=== PATIENT | female | born 1985 | race Caucasian/White ===

== ENCOUNTER 2022-05-09 08:05 | Outpatient (CLI) | payer OTHER, SELFPAY ==
--- NOTE | ~2022-05-09 | MM_ITS ---
EXAMINATION: MM screening [facility] BI w grace HISTORY: Screening mammogram TECHNIQUE: Craniocaudal and mediolateral oblique 3-D tomosynthesis images were obtained and synthetic 2-D images were generated. CAD analysis was submitted and interpreted. COMPARISON: None, baseline BREAST PARENCHYMAL COMPOSITION: There are scattered areas of fibroglandular density. FINDINGS: RIGHT BREAST: There is focal asymmetry posterior third of the outer breast. LEFT BREAST: There is no suspicious mass, calcification, or architectural distortion to suggest malig tim. IMPRESSION: 1. Focal asymmetry of the right breast. 2. Additional mammographic views and possible breast ultrasound are recommended. BI-RADS Category 0: Incomplete: Needs additional imaging evaluation. Reviewed, dictated and finalized at location A. IMPRESSION: 1. Focal asymmetry of the right breast. 2. Additional mammographic views and possible breast ultrasound are recommended . BI-RADS Category 0: Incomplete: Needs additional imaging evaluation.
== END 2022-05-09 08:06 | disposition home or self-care (01) ==
LOC: ANHIMG 08:06
PROVIDERS: PCP Family Medicine; Visit Provider Obstetrics & Gynecology
DX: Z12.31 Encounter for screening mammogram for malignant neoplasm of breast (principal); R92.8 Other abnormal and inconclusive findings on diagnostic imaging of breast
CPT/HCPCS: 77063; 77067

== ENCOUNTER 2022-05-30 13:32 | Outpatient (CLI) | payer OTHER, SELFPAY ==
--- NOTE | ~2022-05-30 | MMUS_ITS ---
EXAMINATION: MM diagnostic mayda RT w grace, US breast RT limited HISTORY: Focal asymmetry of the right breast TECHNIQUE: Additional 3-D tomosynthesis images of the right breast were performed and synthetic 2-D i mages were generated. CAD analysis was submitted and interpreted. High resolution limited right breas t ultrasound was performed. COMPARISON: 05/09/2022 FINDINGS: MAMMOGRAPHIC FINDINGS: A focal asymmetry persists in the posterior third of the upper-outer quadrant of the breast at the 10 :00 location 8 cm from the nipple. No suspicious calcification or architectural distortion are identi fied. ULTRASOUND: There is a 2.3 x 0.9 cm isoechoic area at the 10:30 location 4 cm from the nipple in the far posterio r breast corresponding to the mammographic finding in question. IMPRESSION: 1. Possible island of fibroglandular tissue in the far posterior breast corresponding to the focal as ymmetry of the right breast. 2. Recommend 6 month follow-up right diagnostic mammogram and possible ultrasound. BI-RADS category 3, probably benign findings. Reviewed, dictated and finalized at location A. IMPRESSION: 1. Possible island of fibroglandular tissue in the far posterior breast corresp onding to the focal asymmetry of the right breast. 2. Recommend 6 month follow-up right diagnostic mammogram and possible ultrasou nd. BI-RADS category 3, probably benign findings.
== END 2022-05-30 13:33 | disposition home or self-care (01) ==
PROVIDERS: PCP Family Medicine; Visit Provider Obstetrics & Gynecology
DX: R92.8 Other abnormal and inconclusive findings on diagnostic imaging of breast (principal)
CPT/HCPCS: 76642; 77061; 77065; G0279

== ENCOUNTER 2022-09-06 14:01 | Emergency (ER) | payer OTHER, SELFPAY ==
--- NOTE | 2022-09-06 14:09 | ED.FEMALEGU ---
HPI - Female Genitourinary General Chief complaint: Urogenital-Female Stated complaint: uti complaint Time Seen by Provider: 09/06/22 14:37 Source: patient, RN notes reviewed and old records reviewed Mode of arrival: ambulatory Limitations: no limitations History of Present Illness HPI Narrative: 37-year-old female presents to the [facility] with complaints of right labial pain and to sores. States it has been there a couple days. Denies any similar symptoms in the past. States she has been a stress. Denies any abdominal pain, CVA tenderness. Denies fevers, chest pain. No nausea vomiting diarrhea denies any vaginal discharge Related Data Allergies Allergy/AdvReac Type Severity Reaction Status Date / Time No Known Allergies Allergy Verified 09/06/22 14:25 Review of Systems Review of Systems: All systems reviewed & are unremarkable except as noted in HPI and below Constitutional: Constitutional: Reports no additional constitutional complaints Eyes: Eyes: Reports no additional eye complaints ENT: Reports system reviewed and no additional complaints, except as documented Cardiovascular: Cardiovascular: Reports no additional cardiovascular complaints, Denies chest pain and Denies dyspnea Respiratory: Respiratory: Reports no additional respiratory complaints, Denies chest congestion, Denies cough and Denies dyspnea Gastrointestinal: Gastrointestinal: Reports no additional gastrointestinal complaints, Denies abdominal pain, Denies nausea and Denies vomiting Genitourinary: Genitourinary: Reports as per HPI Musculoskeletal: Musculoskeletal: Reports no additional musculoskeletal complaints Integumentary/Breasts: Skin/Breast: Reports system reviewed and no additional complaints, except as docu Neurologic: Reports system reviewed and no additional complaints, except as documented Psychiatric: Psychiatric: Reports no additional psychiatric complaints Allergic/Immunologic: Allergic/Immunologic: Reports no additional allergic/immunologic complaints [facility] Past Medical History Medical History (Updated 09/07/22 @ 00:01 by Background Daemon) Abnormal Pap smear of cervix (~2005) Abnormal serum iron level iron 70 with 21% saturation and ferritin 35 on 12/07/2021 Abnormality of right breast on screening mammogram Acute abdominal pain Acute adjustment disorder with anxiety Acute bronchitis ADHD (attention deficit hyperactivity disorder), inattentive type Alopecia areata Anemia Arthritis labs for inflammatory arthritis were all negative 12/07/2021 with UNIQUE negative,CRP 0.06, sedimentation rate 14, uric acid 4.3, rheumatoid factor less than 8.6 Atypical chest pain BMI 24.0-24.9, adult BMI 25.0-25.9,adult BMI 27.0-27.9,adult Breast asymmetry Chronic anxiety Chronic depression Chronic low back pain COVID-19 (~05/24/20) COVID antibody test positive at 217 on 12/07/2021. Encounter for IUD insertion 03/28/15 Mirena insertion Encounter for IUD removal 06/22/18 Mirena removal Family history of breast cancer Irritable bowel syndrome with constipation and diarrhea Overweight (BMI 25.0-29.9) UTI (urinary tract infection) Vitamin B12 deficiency anemia 805 on 12/07/2021 Vitamin D insufficiency 60.6 on 12/07/2021 Surgical History Surgical History History of colposcopy with cervical biopsy (~2005) benign Family History Family History Mother Hypertension Leaky heart valve Father Hypertension Grandparent Heart disease Other Breast cancer paternal aunt Social History Social History (Updated 08/07/22 @ 16:12 by Cuca Oconnell MA) Smoking status: Never smoker Alcohol intake: current Drinks per week: 2 Substance use: never Substance use type: does not use Lack of Transportation: No Current Housing: Decline to Answer Concerned About Future Housing: Decline to Answer Diffic
[2022-09-06 14:17] VITALS: BP 124/82; PULSE 113; RESP 18; TEMP 36.6; O2SAT 100
== END 2022-09-06 14:55 | disposition home or self-care (01) ==
PROVIDERS: Emergency Provider Nurse Practitioner; PCP Family Medicine
DX: B00.1 Herpesviral vesicular dermatitis (principal)
CPT/HCPCS: 81003; 99213; G0463

== ENCOUNTER 2022-11-28 11:54 | Outpatient (CLI) | payer OTHER, SELFPAY ==
--- NOTE | ~2022-11-28 | MMUS_ITS ---
EXAMINATION: MM diagnostic mayda RT w grace, US breast RT limited HISTORY: Six-month follow-up of possible island of fibroglandular tissue in the far posterior breast TECHNIQUE: Full field and spot 3-D tomosynthesis images of the right breast were performed and synthe tic 2-D images were generated. CAD analysis was submitted and interpreted. High resolution upper oute r quadrant right breast ultrasound was performed. COMPARISON: 05/30/2022 diagnostic right mammogram and limited right breast ultrasound 05/09/2022 bilateral screening mammogram BREAST PARENCHYMAL COMPOSITION: There are scattered areas of fibroglandular density. FINDINGS: MAMMOGRAPHIC FINDINGS: Stable fibroglandular asymmetry in the posterior upper outer right breast. No suspicious mass, manny ectural distortion, malignant calcification, skin thickening or retraction is detected. ULTRASOUND: No suspicious mass, vascularity or shadowing is detected in the upper outer quadrant of the right aayush ast IMPRESSION: 1. Probably benign fibroglandular asymmetry 2. 12 month follow-up right diagnostic mammogram is recommended BI-RADS category 3, probably benign findings. Reviewed, dictated and finalized at location A. RITY PUBLIC SAFETY OFFICER IMPRESSION: 1. Probably benign fibroglandular asymmetry 2. 12 month follow-up right diagnostic mammogram is recommended BI-RADS category 3, probably benign findings.
== END 2022-11-28 11:55 | disposition home or self-care (01) ==
PROVIDERS: PCP Family Medicine; Visit Provider Obstetrics & Gynecology
DX: R92.8 Other abnormal and inconclusive findings on diagnostic imaging of breast (principal)
CPT/HCPCS: 76642; 77061; 77065; G0279

== ENCOUNTER 2023-06-03 11:29 | Outpatient (CLI) | payer OTHER, SELFPAY ==
--- NOTE | ~2023-06-03 | MMUS_ITS ---
EXAMINATION: MM diagnostic mayda BI w grace, US breast BI limited HISTORY: Six-month follow-up of probably benign fibroglandular asymmetry, posterior upper outer right breast; annual screening of left breast TECHNIQUE: Additional 3-D tomosynthesis images of both breasts were performed and synthetic 2-D image s were generated. CAD analysis was submitted and interpreted. High resolution right upper outer quadr ant and left lower inner quadrant breast ultrasound was performed. COMPARISON: 11/28/2022 diagnostic right mammogram and limited right breast ultrasound 05/30/2022 diagnostic right mammogram and limited right breast ultrasound FINDINGS: MAMMOGRAPHIC FINDINGS: Mild asymmetric soft tissue density is noted in the posterior upper outer right breast and lower inne r left breast. This is thought to be most likely benign fibroglandular asymmetry. Ultrasound was perf ormed in these areas to confirm. No suspicious mass, architectural distortion, malignant calcificatio n, skin thickening or retraction is noted. ULTRASOUND: No suspicious mass or shadowing, cyst or other significant sonographic abnormalities detected in the upper outer right breast are lower inner left breast. IMPRESSION: 1. Benign fibroglandular asymmetry; no evidence of malignancy 2. Routine annual mammographic screening is recommended BI-RADS Category 2: Benign finding(s). Reviewed, dictated and finalized at location C. IMPRESSION: 1. Benign fibroglandular asymmetry; no evidence of malignancy 2. Routine annual mammographic screening is recommended BI-RADS Category 2: Benign finding(s).
== END 2023-06-03 11:30 | disposition home or self-care (01) ==
PROVIDERS: PCP Family Medicine; Visit Provider Surgery
DX: R92.8 Other abnormal and inconclusive findings on diagnostic imaging of breast (principal)
CPT/HCPCS: 76642; 77062; 77066; G0279

== ENCOUNTER 2023-12-08 12:19 | Outpatient (CLI) | payer BC, SELFPAY ==
--- NOTE | ~2023-12-08 | MMUS_ITS ---
EXAMINATION: MM diagnostic mayda RT w grace, US breast RT limited HISTORY: Fibroglandular asymmetry, posterior upper outer right breast TECHNIQUE: ML, MLO and CC 3-D tomosynthesis images of the right breast were performed and synthetic 2 -D images were generated. CAD analysis was submitted and interpreted. High resolution upper outer and lower-outer quadrant right breast ultrasound was performed. COMPARISON: 06/03/2023 diagnostic bilateral mammogram and Limited bilateral breast ultrasound 11/28/2022 diagnostic right mammogram and limited right breast ultrasound 05/30/2022 diagnostic right mammogram and limited right breast ultrasound 05/09/2022 bilateral screening mammogram BREAST PARENCHYMAL COMPOSITION: There are scattered areas of fibroglandular density. FINDINGS: MAMMOGRAPHIC FINDINGS: The asymmetric soft tissue density in the posterior outer mid to upper right breast appears stable pa rticularly comparing the cone compression views with the screening views of 05/09/2022. ULTRASOUND: No suspicious mass or shadowing is evident in the upper outer or lower outer quadrants. No other sign ificant sonographic abnormality is noted. IMPRESSION: 1. Stable chronic focal posterior mid to upper outer right breast fibroglandular asymmetry 2. Routine annual mammographic screening is recommended BI-RADS Category 2: Benign finding(s). Reviewed, dictated and finalized at location A. IMPRESSION: 1. Stable chronic focal posterior mid to upper outer right breast fibroglandula r asymmetry 2. Routine annual mammographic screening is recommended BI-RADS Category 2: Benign finding(s).
== END 2023-12-08 12:20 | disposition home or self-care (01) ==
LOC: ANHIMG 12:21
PROVIDERS: PCP Family Medicine; Visit Provider Physician Assistant Surgical
DX: R92.8 Other abnormal and inconclusive findings on diagnostic imaging of breast (principal)
CPT/HCPCS: 76642; 77061; 77065; G0279

== ENCOUNTER → 2024-03-18 09:54 | Outpatient (CLI) | payer BC, SELFPAY ==
--- NOTE | ~2024-03-18 | XR_ITS ---
EXAMINATION: XR lumbar spine min 4V DATE: 03/18/2024 10:11 INDICATION: Chronic worsening low back pain TECHNIQUE: Anteroposterior, lateral, and bilateral oblique views of the lumbar spine, and cone-down l ateral view of the lumbosacral junction were obtained. COMPARISON: None. FINDINGS: Bone alignment is normal. Vertebral body heights are normal. Mild disc height loss at T9-T10 and T11- T12. Lumbar disc heights are normal. Multilevel bilateral mild lumbar facet osteoarthritis. No pars i nterarticularis defects. Sacral arches are intact. No fracture. Bilateral sacroiliac joints are indra l. IMPRESSION: 1. Multilevel mild lumbar facet osteoarthritis. 2. Mild disc height loss at a few lower thoracic levels. Reviewed, dictated and finalized at location A.
== END ==
PROVIDERS: PCP Family Medicine; Visit Provider Registered Nurse
DX: M51.36 Other intervertebral disc degeneration, lumbar region (principal)
CPT/HCPCS: 72110

== ENCOUNTER 2024-11-23 10:52 | Outpatient (CLI) | payer BC, SELFPAY ==
--- NOTE | ~2024-11-23 | MM_ITS ---
EXAMINATION: MM diagnostic mayda BI w grace HISTORY: Family history of breast cancer TECHNIQUE: 3-D tomosynthesis images of the breasts were performed and synthetic 2-D images were gener ated. CAD analysis was submitted and interpreted. COMPARISON: 12/08/2023, 06/03/2023, 11/28/2022, 05/09/2022 BREAST PARENCHYMAL COMPOSITION:Not Dense. There are scattered areas of fibroglandular density. FINDINGS: There is a developing low-density mass in the posterior upper, outer left breast. Stable pa renchymal appearance of the right breast. No suspicious microcalcifications. IMPRESSION: Developing low-density upper, outer, posterior left breast mass. Spot compression views and ultrasoun d are recommended for further evaluation. BI-RADS Category 0: Incomplete: Needs additional imaging evaluation. Reviewed, dictated and finalized at [facility]. NISTRATIVE OFFICE SPECIALIST IMPRESSION: Developing low-density upper, outer, posterior left breast mass. Spot compressi on views and ultrasound are recommended for further evaluation. BI-RADS Category 0: Incomplete: Needs additional imaging evaluation.
--- OUTSIDE RECORDS SUMMARY | 2024-11-23 12:50 | XMS_ITS | Clinical Summary ---
Author Organization [facility] Address [address] [place] [id number] Care Team Providers Care Section Supervisor Name Role Phone Augustus Chahal MD Primary Care Provider [phone] Allergies Active Allergy Reactions Criticality Noted Date Comments Gluten Meal Other (see comment) 05/07/2022 Inflammation in joints Medications Vitamin D3, cholecalciferol, 2000 UNIT Tab tablet Take 2,000 Units by mouth daily. Unsure of dose Active Probiotic Product (PROBIOTIC ADVANCED) Cap Take 1 tablet by mouth daily. Active Active Problems Problem Noted Date Diagnosed Date Lesion of bladder 05/14/2022 Family History Medical History Relation Comments Hypertension Father Heart Disease Mother leaky valve Relation Status Comments Father Alive Mother Alive Social History Tobacco Use Types Packs/Day Years Used Date Smoking Tobacco: Never Smokeless Tobacco: Never Alcohol Use Standard Drinks/Week Comments Yes 3 (1 standard drink = 0.6 oz pur e alcohol) Comments No Sex and Gender Information Value Date Recorded Sex Assigned at Not on file Legal Sex Female 3:31 PM CDT Gender Identity Not on file Sexual Orientation Not on file Last Filed Vital Signs Vital Sign Reading Time Taken Comments Blood Pressure 122/93 05/14/2022 2:35 PM CDT Pulse 70 05/14/2022 2:35 PM CDT Temperature 36.7 C (98.1 F) 05/14/2022 2:35 PM CDT Respiratory Rate 18 05/14/2022 2:35 PM CDT Oxygen Saturation 98% 05/14/2022 2:35 PM CDT Inhaled Oxygen Concentration - - Weight 70.9 kg (156 lb 4.9 oz) 05/14/2022 11:00 AM CDT Height 167.6 cm (5' 6 ) 05/14/2022 11:00 AM CDT Body Mass Index 25.23 05/14/2022 11:00 AM CDT Plan of Treatment Health Maintenance Due Date Last Done Comments Cervical Cancer Screening Pa p Smear (Age 30 to 64) Every 3 Years 1986 Annual Physical 1989 Hepatitis C 2004 DTaP, Tdap and Td Vaccines ( 1 - Tdap) 2005 Hepatitis B Vaccines (1 of 3 - 19+ 3-dose series) 2005 Cervical Cancer Screening Pa p with HPV Testing (Age 30 to 64) Every 5 Years 2016 Cervical Cancer Screening with HPV 2016 COVID-19 Vaccine (2023-2 5 season) 2024 Influenza Adult (#1) 2024 HPV Vaccines Aged Out No longer eligi ble based on patient's age to complete this topic Meningococcal B Vaccine Aged Out No l onger eligible based on patient's age to complete this topic Meningococcal Vaccine Aged Out No teetee julee eligible based on patient's age to complete this topic Pneumococcal Vaccine: Pediat rics (0 to 5 Years) and At-Risk Patients (6 to 64 Years) Aged Out No longer eligible b ased on patient's age to complete this topic RSV Immunizations Under 20 Months Aged Out No longer eligible based on patient's age to complete this topic Insurance Care Teams Section Supervisor Relationship Specialty Start Date End Date Augustus Chahal MD [address] [place] [address] [address] [place] [address] PCP - General FAMILY PRACTICE 05/07/22
--- OUTSIDE RECORDS SUMMARY | 2024-11-23 12:50 | XMS_ITS | Referral Summary ---
Author Organization [facility] Address [address] [place] [address] Care Team Providers Care Lead Cargoman Name Role Phone Esther Castro MD Unavailable [phone] Augustus Chahal MD Primary Care Provider [phone] Source Comments [facility],non-owned Affiliates and Associated Physician Practices is amultiple site organization consisting of ambulatory clinics and hospital sitesin [place], [place], [place] and [place]. This disclosure is being madepursuant to the Care Everywhere program and may not contain all information available regarding this patient. Last updated 18.[facility] Allergies No known active allergies Medications * Be aware that medications may not be up to date on this document. Alwaysverify current medications with the patient. Medication Sig Dispensed Refills Start Date End Date Status Vit-Fe Fumarate-FA ( VITAMIN) 27-0.8 MG tablet Take 1 tablet by mouth once daily Active diphenhydrAMINE-Zinc Acetate (BENADRYL ITCH STOPPING) 1-0.1 % cream Apply to affected area as needed for Itching 100 g 01/20/2019 Active Active Problems No known active problems Social History Tobacco Use Types Packs/Day Years Used Date Smoking Tobacco: Never Smokeless Tobacco: Never Alcohol Use Standard Drinks/Week Comments No 0 (1 standard drink = 0.6 oz pur e alcohol) Sex and Gender Information Value Date Recorded Sex Assigned at Not on file Gender Identity Not on file Sexual Orientation Not on file Last Filed Vital Signs Vital Sign Reading Time Taken Comments Blood Pressure 98/64 01/20/2019 2:37 PM CDT Pulse 92 01/20/2019 2:37 PM CDT Temperature - - Respiratory Rate - - Oxygen Saturation - - Inhaled Oxygen Concentration - - Weight 73 kg (161 lb) 01/20/2019 2:37 PM CDT Height 167.6 cm (5' 6 ) 01/20/2019 2:37 PM CDT Body Mass Index 25.99 01/20/2019 2:37 PM CDT Plan of Treatment Not on file Care Teams Lead Cargoman Relationship Specialty [place] [id number] [place] [address] PCP - General Family Medicine 12/16/18 [place] [address] [address] [place] [address] Rheumatology 12/16/18
--- OUTSIDE RECORDS SUMMARY | 2024-11-23 12:50 | XMS_ITS | Encounter Summary ---
Author Organization [facility] Address [address] [place] [address] Care Team Providers Care Production Utility Worker Name Role Phone Augustus Chahal MD Primary Care Provider [phone] Encounter Details Date Type Department Care Team (Late st Contact Info) Description 05/07/2022 Prep for Procedure [facility] Pre-Ad[facility] [place], [place] [address] Raheem Greer MD [address] [facility] [place] [address] Social History Tobacco Use Types Packs/Day Years Used Date Smoking Tobacco: Never Smokeless Tobacco: Never Alcohol Use Standard Drinks/Week Comments Yes 3 (1 standard drink = 0.6 oz pur e alcohol) Comments No Sex and Gender Information Value Date Recorded Sex Assigned at Not on file Legal Sex Female 3:31 PM CDT Gender Identity Not on file Sexual Orientation Not on file documented as of this encounter Plan of Treatment Not on file documented as of this encounter Visit Diagnoses Diagnosis Preop examination- Primary Preoperative examination, unspecified documented in this encounter Additional Health Concerns Infection Onset Date Last Indicated Resolved Time COVID-19 Rule Out 05/07/2022 05/07/2022 05/09/2022 2:47 PM CDT COVID-19 Rule Out 05/13/2022 05/13/2022 05/14/2022 7:37 AM CDT documented as of this encounter Care Teams Production Utility Worker Relationship Specialty Start Date End Date Augustus Chahal MD [address] [place] [address] [address] [place] [address] PCP - General FAMILY PRACTICE 05/07/22 documented as of this encounter
--- OUTSIDE RECORDS SUMMARY | 2024-11-23 12:50 | XMS_ITS | Clinical Summary ---
Author Organization [facility] Address [address] [place] [address] Care Team Providers Care Physiologist Name Role Phone Esther Castro MD Unavailable [phone] Augustus Chahal MD Primary Care Provider [phone] Source Comments [facility],non-owned Affiliates and Associated Physician Practices is amultiple site organization consisting of ambulatory clinics and hospital sitesin [place], [place], [place] and [place]. This disclosure is being madepursuant to the Care Everywhere program and may not contain all information available regarding this patient. Last updated 18.[facility] Allergies No known active allergies Medications * [...] 01/20/2019 2:37 PM CDT Plan of Treatment Health Maintenance Due Date Last Done Comments PAP SMEAR 1986 HIV SCREENING 2001 HEPATITIS C SCREENING 04/10/2004 DTAP/TDAP/TD VACCINES (1 - Tdap) 2005 HEPATITIS B VACCINE (1 of 3 - 19+ 3-dose series) 2005 COVID-19 VACCINE ( - 2023-2 5 season) 2024 INFLUENZA VACCINE (#1) 2024 DEPRESSION SCREENING 09/29/2024 ZOSTER VACCINE (1 of 2) 2036 HIB VACCINE Aged Out No longer eligi ble based on patient's age to complete this topic HPV VACCINE Aged Out No longer eligi ble based on patient's age to complete this topic MENINGOCOCCAL (Group B) VACCINE Aged Out No longer eligible based on patient's age to complete this topic MENINGOCOCCAL VACCINE Aged Out No teetee julee eligible based on patient's age to complete this topic PNEUMOCOCCAL VACCINE Aged Out No long er eligible based on patient's age to complete this topic Care Teams Physiologist Relationship Specialty [place] [address] [facility] [address] [address] [place] [address] PCP - General Family Medicine 12/16/18 [place] [address] [facility] [address] [place] [address] Rheumatology 12/16/18
--- OUTSIDE RECORDS SUMMARY | 2024-11-23 12:50 | XMS_ITS | Patient Health Summary ---
Author Organization [facility] Address [address] [place] [address] Care Team Providers Care Time Clock Repairer Name Role Phone Esther Castro MD Unavailable [phone] Augustus Chahal MD Primary Care Provider [phone] Note from [facility],non-owned Affiliates and Associated Physician Practices is amultiple site organization consisting of ambulatory clinics and hospital sitesin [place], [place], [place] and [place]. This disclosure is being madepursuant to the Care Everywhere program and may not contain all information available regarding this patient. Last updated 18.[facility] Allergies No known active allergies Medications * Be aware that medications may not be up to date on this document. Alwaysverify current medications with the patient. * Vit-Fe Fumarate-FA ( VITAMIN) 27-0.8 MG tablet Take 1 tablet by mouth once daily * diphenhydrAMINE-Zinc Acetate (BENADRYL ITCH STOPPING) 1-0.1 % cream(Started 01/20/2019) Apply to affected area as needed for Itching Active Problems No known active problems Social [...] Mass Index 25.99 01/20/2019 2:37 PM CDT Care Teams Time Clock Repairer Relationship Specialty [place] [address] [facility] [address] [place] [phone] PCP - General Family Medicine 12/16/18 [place] [address] [facility] [address] [place] [phone] Rheumatology 12/16/18
== END 2024-11-23 10:53 | disposition home or self-care (01) ==
LOC: ANHIMG 10:53
PROVIDERS: Visit Provider Surgery
DX: N64.89 Other specified disorders of breast (principal); R92.8 Other abnormal and inconclusive findings on diagnostic imaging of breast
CPT/HCPCS: 77062; 77066; G0279

== ENCOUNTER 2024-11-24 10:22 | Outpatient (CLI) | payer BC, SELFPAY ==
--- NOTE | ~2024-11-24 | US_ITS ---
EXAMINATION: MM diagnostic mayda BI w grace HISTORY: Developing left breast mass. Patient returned for additional diagnostic workup as initially recommended. TECHNIQUE: Additional 3-D tomosynthesis images of the left breast were performed and synthetic 2-D im ages were generated. CAD analysis was submitted and interpreted. High resolution limited left breast ultrasound was performed. COMPARISON: 11/23/2024 BREAST PARENCHYMAL COMPOSITION:Not Dense. There are scattered areas of fibroglandular density. FINDINGS: MAMMOGRAPHIC FINDINGS: Spot compression views demonstrate persistent low-density mass at the posterior upper, outer left aayush ast. ULTRASOUND: At the upper, outer left breast posteriorly, there are at least 2 benign right femoral lymph nodes wi th fatty nino. No suspicious mass identified. IMPRESSION: Benign lymph nodes at the upper, outer posterior left breast, as above. No suspicious abnormality. BI-RADS Category 2: Benign finding(s). Reviewed, dictated and finalized at [facility]. ET RESEARCH ASSOCIATE IMPRESSION: Benign lymph nodes at the upper, outer posterior left breast, as above. No tatiana picious abnormality. BI-RADS Category 2: Benign finding(s).
--- OUTSIDE RECORDS SUMMARY | 2024-11-24 11:55 | XMS_ITS | Clinical Summary ---
Author Organization [facility] [employer] Address [address] [place] [address] Care Team Providers Care Costume Director Name Role Phone Esther Castro MD Unavailable [phone] Augustus Chahal MD Primary Care Provider [phone] Source Comments [facility] [employer],non-owned Affiliates and Associated Physician Practices is amultiple site organization consisting of ambulatory clinics and hospital sitesin [place], [place], [place] and [place]. This disclosure is being madepursuant to the Care Everywhere program and may not contain all information available regarding this patient. Last updated 18.[facility] [employer] Allergies No known active allergies Medications * [...] age to complete this topic Care Teams Costume Director Relationship Specialty [place] [address] [facility] [address] [place] [address] PCP - General Family Medicine 12/16/18 [place] [address] [facility] [address] [place] [address] Rheumatology 12/16/18
--- OUTSIDE RECORDS SUMMARY | 2024-11-24 11:55 | XMS_ITS | Clinical Summary ---
Author Organization [facility] Address [address] [place] [address] Care Team Providers Care Automobile Upholsterer Apprentice Name Role Phone Augustus Chahal MD Primary Care Provider [phone] Allergies Active Allergy Reactions Criticality Noted Date [...] to complete this topic Insurance Care Teams Automobile Upholsterer Apprentice Relationship Specialty Start Date End Date Augustus Chahal MD [address] [place] [address] [address] [place] [address] PCP - General FAMILY PRACTICE 05/07/22
--- OUTSIDE RECORDS SUMMARY | 2024-11-24 11:55 | XMS_ITS | Encounter Summary ---
Author Organization [facility] Address [address] [place] [address] Care Team Providers Care Front Office Supervisor Name Role Phone Augustus Chahal MD Primary Care Provider [phone] Encounter Details Date Type Department Care Team (Late st Contact Info) Description 05/07/[address] [facility] Pre-Admission [facility] [place], [place] [id number] Raheem Greer MD [address] [facility] [place] [address] Social History Tobacco Use Types Packs/Day Years [...] documented as of this encounter Care Teams Front Office Supervisor Relationship Specialty Start Date End Date Augustus Chahal MD [address] [place] [address] [address] [place] [address] PCP - General FAMILY PRACTICE 05/07/22 documented as of this encounter
--- OUTSIDE RECORDS SUMMARY | 2024-11-24 11:55 | XMS_ITS | Patient Health Summary ---
Author Organization [facility] Address [address] [place] [address] Care Team Providers Care Game Farm Supervisor Name Role Phone Esther Castro MD Unavailable [phone] Augustus Chahal MD Primary Care Provider [phone] Note from [facility],non-owned Affiliates and Associated Physician Practices is amultiple site organization consisting of ambulatory clinics and hospital sitesin [place], [place], [place]. This disclosure is being madepursuant to the Care Everywhere program and may not contain all information available regarding this patient. Last updated 18.[facility] Allergies No known active allergies Medications [...] 25.99 01/20/2019 2:37 PM CDT Care Teams Game Farm Supervisor Relationship Specialty [place] [address] [facility] [address] [place] [phone] PCP - General Family Medicine 12/16/18 [place] [address] [facility] [address] [place] [phone] Rheumatology 12/16/18
--- OUTSIDE RECORDS SUMMARY | 2024-11-24 11:55 | XMS_ITS | Referral Summary ---
Author Organization [facility] [employer] Address [address] [place] [address] Care Team Providers Care Addiction Professional Name Role Phone Esther Castro MD Unavailable [phone] Augustus Chahal MD Primary Care Provider [phone] Source Comments [facility],non-owned Affiliates and Associated Physician Practices is amultiple site organization consisting of ambulatory clinics and hospital sitesin [place], [place], [place] and [place]. This disclosure is being madepursuant to the Care Everywhere program and may not contain all information available regarding this patient. Last updated 18.[facility] [employer] Allergies No known active allergies Medications * [...] of Treatment Not on file Care Teams Addiction Professional Relationship Specialty [place] [address] [place] [address] PCP - General Family Medicine 12/16/18 [place] [address] [place] [address] Rheumatology 12/16/18
== END 2024-11-24 10:23 | disposition home or self-care (01) ==
LOC: ANHIMG 10:29
PROVIDERS: PCP Family Medicine; Visit Provider Surgery
DX: N63.20 Unspecified lump in the left breast, unspecified quadrant (principal); R92.8 Other abnormal and inconclusive findings on diagnostic imaging of breast; Z80.3 Family history of malignant neoplasm of breast
CPT/HCPCS: 76642

== ENCOUNTER → 2025-06-30 12:26 | Outpatient (CLI) | payer BC, SELFPAY ==
--- NOTE | ~2025-06-30 | XR_ITS ---
EXAMINATION: XR sacrum coccyx min 2V, 06/30/2025 12:29 CDT HISTORY: R52 - Pain, unspecified COMPARISON: No comparisons available. Findings: No acute fracture or malalignment. No significant degenerative changes. Soft tissues unremarkable. Impression: No acute fracture or malalignment. Reviewed, dictated and finalized at location P. Impression: No acute fracture or malalignment.
--- OUTSIDE RECORDS SUMMARY | 2025-06-30 12:30 | XMS_ITS | Clinical Summary ---
Author Organization [facility] [employer] Address [address] [place] [address] Care Team Providers Care Case Coordinator Name Role Phone Esther Castro MD Unavailable [phone] Augustus Chahal MD Primary Care Provider [phone] Source Comments [facility] [employer],non-owned Affiliates and Associated Physician Practices is amultiple site organization consisting of ambulatory clinics and hospital sitesin [place], [place], [place] and [place]. This disclosure is being madepursuant to the Care Everywhere program and may not contain all information available regarding this patient. Last updated 18.[facility] [employer] Allergies No known active allergies Medications * Be aware that medications may not be up to date on this document. Alwaysverify current medications with the patient. Vit-Fe Fumarate-FA ( VITAMIN) 27-0.8 MG tablet Take 1 tablet by mouth once daily Active diphenhydrAMINE -Zinc Acetate (BENADRYL ITCH STOPPING) 1-0.1 % cream Apply to affected area as needed for Itching 100 g 01/20/2019 Active Active Problems No known active problems Social History Tobacco Use Types Packs/Day Years Used Date Smoking Tobacco: Never Smokeless Tobacco: Never Alcohol Use Standard Drinks/Week Comments No 0 (1 standard drink = 0.6 oz pur e alcohol) Comments Unknown Sex and Gender Information Value Date Recorded Sex Assigned at Not on file Legal Sex Female 2:04 PM SOCIAL MEDIA MARKETING SPECIALIST Gender Identity Not on file Sexual Orientation Not on file Occupation Industry Job Start Date Job End Date Nurse Not on file Not on file Not on file Last Filed Vital Signs Vital Sign Reading Time Taken Comments Blood Pressure 98/64 01/20/2019 2:37 PM CDT Pulse 92 01/20/2019 2:37 PM CDT Temperature - - Respiratory Rate - - Oxygen Saturation - - Inhaled Oxygen Concentration - - Weight 73 kg (161 lb) 01/20/2019 2:37 PM CDT Height 167.6 cm (5' 6) 01/20/2019 2:37 PM CDT Body Mass Index 25.99 01/20/2019 2:37 PM CDT Plan of Treatment Health Maintenance Due Date Last Done Comments HIV SCREENING 2001 HEPATITIS C SCREENING 04/10/2004 DTAP/TDAP/TD VACCINES (1 - Tdap) 2005 HEPATITIS B VACCINE (1 of 3 - 19+ 3-dose series) 2005 HPV VACCINE (1 - 3-dose SCDM series) 2013 DEPRESSION SCREENING 09/29/2024 COVID-19 VACCINE (1 - 2023-2 5 season) 2025 INFLUENZA VACCINE (#1) 2025 ZOSTER VACCINE (1 of 2) 2036 HIB VACCINE Aged Out No longer eligi ble based on patient's age to complete this topic MENINGOCOCCAL (Group B) VACC INE SHARED DECISION-MAKING Aged Out No longer eligibl e based on patient's age to complete this topic MENINGOCOCCAL GROUPS A/C/Y/W VACCINE Aged Out No longer eligible b ased on patient's age to complete this topic PNEUMOCOCCAL VACCINE Aged Out No long er eligible based on patient's age to complete this topic Insurance [facility] Address: [facility] [id number] [phone] Care Teams Case Coordinator Relationship Specialty [place] [address] [phone] PCP - General Family Medicine 12/16/18 [place] [address] [phone] Rheumatology 12/16/18
--- OUTSIDE RECORDS SUMMARY | 2025-06-30 12:30 | XMS_ITS | Encounter Summary ---
Author Organization [facility] Address [address] [place] [address] Care Team Providers Care Battery Tester Name Role Phone Augustus Chahal MD Primary Care Provider [phone] Encounter Details Date Type Department Care Team (Late st Contact Info) Description 05/07/2022 Prep for Procedure [facility] Pre-Admission [facility] [place], [place] [id number] Raheem Greer MD [address] [facility] [place] [address] Social History Tobacco Use Types Packs/Day Years [...] documented as of this encounter Care Teams Battery Tester Relationship Specialty Start Date End Date Augustus Chahal MD [address] [place] [address] [address] [place] [address] PCP - General FAMILY PRACTICE 05/07/22 documented as of this encounter
--- OUTSIDE RECORDS SUMMARY | 2025-06-30 12:30 | XMS_ITS | Clinical Summary ---
Author Organization [facility] Address [address] [place] [address] Care Team Providers Care Electronics Warfare Technician Name Role Phone Augustus Chahal MD Primary Care Provider [phone] Allergies Active Allergy Reactions Criticality Noted Date [...] 11:00 AM CDT Height 167.6 cm (5' 6) 05/14/2022 11:00 AM CDT Body Mass Index [...] 3 - 19+ 3-dose series) 2005 HPV Vaccines (1 - 3-dose SCD M series) 2013 Cervical Cancer Screening Pa p with HPV Testing (Age 30 to 64) Every 5 Years 2016 Cervical Cancer Screening with HPV 2016 COVID-19 Vaccine (2023-2 5 season) 2025 Influenza Adult (#1) 2025 Meningococcal B Vaccine Aged Out No l onger eligible based on patient's age to complete this topic Meningococcal Vaccine Aged Out No teetee julee eligible based on patient's age to complete this topic Pneumococcal Vaccine: Pediat rics (0 to 5 Years) and At-Risk Patients (6 to 49 Years) Aged Out No longer eligible b ased on patient's age to complete this topic RSV Immunizations Under 20 Months Aged Out No longer eligible based on patient's age to complete this topic Insurance Care Teams Electronics Warfare Technician Relationship Specialty Start Date End Date Augustus Chahal MD [address] [place] [address] [address] [place] [address] PCP - General FAMILY PRACTICE 05/07/22
== END ==
PROVIDERS: PCP Obstetrics & Gynecology; Referring Provider Obstetrics & Gynecology; Visit Provider Obstetrics & Gynecology
DX: R52 Pain, unspecified (principal)
CPT/HCPCS: 72220